=== PATIENT | female | born 2000 | race Caucasian/White ===

== ENCOUNTER → 2024-02-17 | Outpatient (REF) | LOC: M EMP 07:45 | PROVIDERS: ATTEND Family Medicine | DX: Z11.52 Encounter for screening for COVID-19 (principal) ==

== ENCOUNTER → 2024-02-25 | Outpatient (REF) | LOC: M EMP 10:46 | PROVIDERS: ATTEND Family Medicine | DX: Z11.52 Encounter for screening for COVID-19 (principal) ==

== ENCOUNTER → 2024-03-24 | Outpatient (REF) | LOC: M EMP 09:20 | PROVIDERS: ATTEND Family Medicine | DX: Z02.89 Encounter for other administrative examinations (principal) ==

== ENCOUNTER 2024-05-03 05:58 | Emergency (ER) | payer OTHER ==
[~2024-05-03] VITALS: Ht 165.1 cm; Wt 65.9 kg
[2024-05-03] MEDS: METOCLOPRAMIDE INJ 10MG/2ML VIAL IV ONE (09:57)
[2024-05-03 09:58] LABS: BASO # 0.1 10^3/uL (0.0-0.2); BASO % 0.9 % (0.0-1.0); EOS # 0.1 10^3/uL (0.0-0.5); EOS % 1.8 % (0.0-3.0); HEMATOCRIT 40.5 % (36.0-47.0); HEMOGLOBIN 13.3 g/dl (12.0-15.5); LYMPH # 1.4 10^3/uL (1.5-5.0); MEAN CORPUSCULAR HEMOGLOBIN 32.5 pg (27.0-33.0); MEAN CORPUSCULAR HGB CONC 32.8 g/dl (32.0-36.5); MONO # 0.5 10^3/uL (0.0-0.8); MONO % 8.8 % (2.0-8.0); NEUTROPHILS # 3.5 10^3/uL (1.5-8.5); NEUTROPHILS % 63.1 % (36.0-66.0); PLATELET COUNT, AUTOMATED 269 10^3/uL (150-450); RED BLOOD COUNT 4.09 10^6/uL (4.00-5.40); WHITE BLOOD COUNT 5.6 10^3/uL (4.0-10.0)
[2024-05-03] MEDS: ACETAMINOPHEN *IV* 1,000 MG in IV 1 EA IV ONE (09:58)
[2024-05-03 10:24] LABS: ALBUMIN 3.9 G/DL (3.2-5.2); ALKALINE PHOSPHATASE 90 U/L (46-116); ALT/SGPT 10 U/L (7.0-40); AST/SGOT 8 U/L (<34); BILIRUBIN,TOTAL 0.6 MG/DL (0.3-1.2); BLOOD UREA NITROGEN 15 MG/DL (9-23); CALCIUM LEVEL 9.2 MG/DL (8.5-10.1); CARBON DIOXIDE LEVEL 25 MMOL/L (20-31); CHLORIDE LEVEL 113 MMOL/L (98-107); CREATININE FOR GFR 0.82 MG/DL (0.55-1.30); GLOMERULAR FILTRATION RATE > 60.0 (>60); GLUCOSE, FASTING 90 MG/DL (60-100); MAGNESIUM LEVEL 2.3 MG/DL (1.8-2.4); POTASSIUM SERUM 4.3 MMOL/L (3.5-5.1); SODIUM LEVEL 140 MMOL/L (136-145); TOTAL PROTEIN 6.6 G/DL (5.7-8.2)
[2024-05-03 10:25] LABS: HCG, SERUM QUALITATIVE NEGATIVE (NEGATIVE)
[2024-05-03 10:26] LABS: THYROID STIMULATING HORMONE 2.615 uIU/ML (0.55-4.78)
[2024-05-03] MEDS: KETOROLAC 30 MG/ML 1ML VIAL IV ONE (11:19)
[2024-05-03] MEDS: dexAMETHasone 20MG/5ML VIAL IV ONE (11:19)
[2024-05-03 16:01] VITALS: BP 90/52; TEMP 97.2; O2SAT 97
== END 2024-05-03 16:26 | disposition home or self-care (01) ==
LOC: M ED 05:58
DX: R51.9 Headache, unspecified (principal); M54.2 Cervicalgia; H53.8 Other visual disturbances
CPT/HCPCS: 70450; 70544; 70547; 70551; 80053; 83605; 83735; 84443; 84703; 85025; 87040; 96374; 96375; 99284; J0131; J1100; J1885; J2765

== ENCOUNTER 2024-05-10 23:03 | Emergency (ER) | payer OTHER ==
[~2024-05-10] VITALS: Ht 165.1 cm; Wt 67.7 kg
[2024-05-11 01:10] LABS: BASO # 0.1 10^3/uL (0.0-0.2); BASO % 0.7 % (0.0-1.0); EOS # 0.3 10^3/uL (0.0-0.5); EOS % 2.3 % (0.0-3.0); HEMATOCRIT 39.5 % (36.0-47.0); LYMPH # 2.3 10^3/uL (1.5-5.0); LYMPH % 20.3 % (24.0-44.0); MEAN CORPUSCULAR HEMOGLOBIN 32.4 pg (27.0-33.0); MEAN CORPUSCULAR HGB CONC 32.9 g/dl (32.0-36.5); MEAN CORPUSCULAR VOLUME 98.5 fl (80.0-96.0); MONO # 1.3 10^3/uL (0.0-0.8); MONO % 11.7 % (2.0-8.0); NEUTROPHILS # 7.2 10^3/uL (1.5-8.5); NEUTROPHILS % 64.8 % (36.0-66.0); PLATELET COUNT, AUTOMATED 246 10^3/uL (150-450); RED BLOOD COUNT 4.01 10^6/uL (4.00-5.40); WHITE BLOOD COUNT 11.2 10^3/uL (4.0-10.0)
[2024-05-11] MEDS: MAG SULF 1GM/100ML (MAG RUN) 1 GM in IV 1 EA IV ONE (01:22)
[2024-05-11] MEDS: METOCLOPRAMIDE INJ 10MG/2ML VIAL IV ONE (01:22)
[2024-05-11] MEDS: KETOROLAC 30 MG/ML 1ML VIAL IV ONE (01:22)
[2024-05-11 01:35] LABS: ALBUMIN 3.9 G/DL (3.2-5.2); ALKALINE PHOSPHATASE 97 U/L (35-104); ALT/SGPT < 9 U/L (7.0-40); AST/SGOT 12 U/L (<34); BILIRUBIN,DIRECT 0.1 MG/DL (<0.4); BILIRUBIN,TOTAL 0.4 MG/DL (0.3-1.2); BLOOD UREA NITROGEN 16 MG/DL (9-23); CALCIUM LEVEL 9.8 MG/DL (8.5-10.1); CARBON DIOXIDE LEVEL 26 MMOL/L (20-31); CHLORIDE LEVEL 111 MMOL/L (98-107); CK-MB VALUE MASS < 1.0 NG/ML (<3.6); CREATININE FOR GFR 0.79 MG/DL (0.55-1.30); GLOMERULAR FILTRATION RATE > 60.0 (>60); GLUCOSE, FASTING 73 MG/DL (60-100); POTASSIUM SERUM 3.7 MMOL/L (3.5-5.1); SODIUM LEVEL 143 MMOL/L (136-145); TOTAL PROTEIN 6.4 G/DL (5.7-8.2)
[2024-05-11 01:38] LABS: THYROID STIMULATING HORMONE 3.684 uIU/ML (0.55-4.78)
[2024-05-11 01:39] LABS: CPK CREATINE PHOSPHOKINASE 49 U/L (34-145); MB/CK RELATIVE INDEX 2.04 (< OR =4)
[2024-05-11] MEDS: FIORICET TAB PO ONE ×2 (03:34)
[2024-05-11 04:53] VITALS: BP 124/60; TEMP 97.8; O2SAT 97
[2024-05-11] MEDS ORDERED: FIOR1CAP PO (05:12)
== END 2024-05-11 05:43 | disposition home or self-care (01) ==
LOC: M ED 23:03
DX: G43.909 Migraine, unspecified, not intractable, without status migrainosus (principal); J45.909 Unspecified asthma, uncomplicated; J44.9 Chronic obstructive pulmonary disease, unspecified; Z88.0 Allergy status to penicillin; Z88.5 Allergy status to narcotic agent
CPT/HCPCS: 80048; 80076; 82550; 82553; 84443; 84484; 85025; 93005; 96374; 96375; 99284; J1100; J1885; J2765; J3475

== ENCOUNTER 2024-05-24 06:44 | Emergency (ER) | payer OTHER ==
[~2024-05-24] VITALS: Ht 165.1 cm; Wt 67.3 kg
[~2024-05-24 06:44] MED LIST: FIOR1CAP PO
[2024-05-24] MEDS: MORPHINE 2 MG/ML 1ML VIAL IV ONE (07:18)
[2024-05-24] MEDS: ONDANSETRON 4MG 2ML VIAL IV ONE (07:19)
[2024-05-24 07:32] LABS: BASO # 0.1 10^3/uL (0.0-0.2); BASO % 0.8 % (0.0-1.0); EOS # 0.2 10^3/uL (0.0-0.5); EOS % 2.5 % (0.0-3.0); HEMATOCRIT 39.2 % (36.0-47.0); HEMOGLOBIN 12.6 g/dl (12.0-15.5); LYMPH # 1.9 10^3/uL (1.5-5.0); LYMPH % 20.6 % (24.0-44.0); MEAN CORPUSCULAR HEMOGLOBIN 31.8 pg (27.0-33.0); MEAN CORPUSCULAR HGB CONC 32.1 g/dl (32.0-36.5); MONO # 1.1 10^3/uL (0.0-0.8); MONO % 12.2 % (2.0-8.0); NEUTROPHILS # 5.7 10^3/uL (1.5-8.5); NEUTROPHILS % 63.6 % (36.0-66.0); PLATELET COUNT, AUTOMATED 270 10^3/uL (150-450); RED BLOOD COUNT 3.96 10^6/uL (4.00-5.40)
[2024-05-24 07:48] LABS: HCG, SERUM QUANTITATIVE < 2.6 MIU/ML (<4.2)
[2024-05-24 08:09] LABS: BLOOD UREA NITROGEN 16 MG/DL (9-23); CALCIUM LEVEL 9.2 MG/DL (8.5-10.1); CARBON DIOXIDE LEVEL 26 MMOL/L (20-31); CHLORIDE LEVEL 112 MMOL/L (98-107); CREATININE FOR GFR 0.81 MG/DL (0.55-1.30); GLOMERULAR FILTRATION RATE > 60.0 (>60); GLUCOSE, FASTING 76 MG/DL (60-100); POTASSIUM SERUM 3.8 MMOL/L (3.5-5.1); SODIUM LEVEL 144 MMOL/L (136-145)
[2024-05-24] MEDS: KETOROLAC 30 MG/ML 1ML VIAL IV ONE (08:14)
[2024-05-24] MEDS: MORPHINE 4 MG/ML 1ML VIAL IV ONE (09:57)
[2024-05-24] MEDS ORDERED: ISOVUE-370 76% 100ML VIAL As Ordered ONE (11:44)
[2024-05-24 12:08] LABS: GC DNA AMPLIFICATION NEGATIVE (NEGATIVE)
[2024-05-24] MEDS ORDERED: IBUP80TA PO (13:40)
[2024-05-24 13:42] VITALS: BP 101/66; TEMP 97.7; O2SAT 99
== END 2024-05-24 13:51 | disposition home or self-care (01) ==
LOC: M ED 06:44
DX: R10.2 Pelvic and perineal pain (principal); N92.0 Excessive and frequent menstruation with regular cycle
CPT/HCPCS: 74177; 76830; 76856; 80048; 84702; 85025; 86850; 86900; 86901; 87210; 87810; 87850; 93976; 96374; 96375; 96376; 99284; J1885; J2405; Q9967

== ENCOUNTER → 2024-07-22 | Outpatient (REF) ==
[~2024-07-22] MED LIST changes: +IBUP80TA PO
== END ==
LOC: M EMP 13:22
PROVIDERS: ATTEND Family Medicine
DX: Z11.52 Encounter for screening for COVID-19 (principal); Z20.822 Contact with and (suspected) exposure to COVID-19

== ENCOUNTER → 2024-08-17 | Outpatient (REF) | payer OTHER | LOC: M LAB REF 20:33 | PROVIDERS: ATTEND Physician Assistant Medical | DX: R50.9 Fever, unspecified (principal) ==

== ENCOUNTER 2024-10-01 02:08 | Emergency (ER) | payer OTHER ==
[~2024-10-01] VITALS: Ht 165.1 cm; Wt 71.3 kg
[2024-10-01 02:11] VITALS: TEMP 97.3
[2024-10-01] MEDS ORDERED: BUSP10TA (02:26)
[2024-10-01] MEDS ORDERED: GABA-1635 (02:26)
[2024-10-01] MEDS ORDERED: CITA20TA7 (02:26)
[2024-10-01] MEDS ORDERED: CITA10TA7 (02:26)
[2024-10-01 05:23] LABS: BASO % 0.5 % (0.0-1.0); EOS # 0.2 10^3/uL (0.0-0.5); EOS % 2.7 % (0.0-3.0); HEMATOCRIT 41.1 % (36.0-47.0); HEMOGLOBIN 13.9 g/dl (12.0-15.5); LYMPH # 2.1 10^3/uL (1.5-5.0); LYMPH % 25.1 % (24.0-44.0); MEAN CORPUSCULAR HEMOGLOBIN 32.5 pg (27.0-33.0); MEAN CORPUSCULAR HGB CONC 33.8 g/dl (32.0-36.5); MONO # 0.7 10^3/uL (0.0-0.8); MONO % 8.6 % (2.0-8.0); NEUTROPHILS # 5.2 10^3/uL (1.5-8.5); NEUTROPHILS % 62.9 % (36.0-66.0); PLATELET COUNT, AUTOMATED 289 10^3/uL (150-450); RED BLOOD COUNT 4.28 10^6/uL (4.00-5.40); WHITE BLOOD COUNT 8.3 10^3/uL (4.0-10.0)
[2024-10-01 05:59] LABS: ALBUMIN 4.3 G/DL (3.2-5.2); ALKALINE PHOSPHATASE 77 U/L (35-104); ALT/SGPT 14 U/L (7.0-40); AST/SGOT 44 U/L (<34); BILIRUBIN,DIRECT 0.1 MG/DL (<0.4); BILIRUBIN,TOTAL 0.5 MG/DL (0.3-1.2); BLOOD UREA NITROGEN 8 MG/DL (9-23); CALCIUM LEVEL 9.1 MG/DL (8.5-10.1); CARBON DIOXIDE LEVEL 25 MMOL/L (20-31); CHLORIDE LEVEL 104 MMOL/L (98-107); CPK CREATINE PHOSPHOKINASE 148 U/L (34-145); CREATININE FOR GFR 0.64 MG/DL (0.55-1.30); GLOMERULAR FILTRATION RATE > 60.0 (>60); GLUCOSE, FASTING 90 MG/DL (60-100); LIPASE 38 U/L (12-53); MB/CK RELATIVE INDEX 0.67 (< OR =4); POTASSIUM SERUM 5.4 MMOL/L (3.5-5.1); SODIUM LEVEL 141 MMOL/L (136-145); TOTAL PROTEIN 7.5 G/DL (5.7-8.2)
[2024-10-01 06:07] LABS: HCG, SERUM QUALITATIVE NEGATIVE (NEGATIVE)
[2024-10-01 07:00] VITALS: BP 103/64; O2SAT 98
== END 2024-10-01 07:08 | disposition home or self-care (01) ==
LOC: M ED 02:08
DX: R07.9 Chest pain, unspecified (principal); J45.909 Unspecified asthma, uncomplicated; F41.9 Anxiety disorder, unspecified; F32.A Depression, unspecified; Z86.79 Personal history of other diseases of the circulatory system; Z88.0 Allergy status to penicillin; Z88.1 Allergy status to other antibiotic agents; Z88.5 Allergy status to narcotic agent

== ENCOUNTER 2025-01-31 20:06 | Emergency (ER) | payer OTHER ==
[~2025-01-31] VITALS: Ht 165.1 cm; Wt 78.4 kg
[~2025-01-31 20:06] MED LIST changes: +BUSP10TA; +CITA10TA7; +CITA20TA7; +GABA-1635; +ONDA-282 PO
[2025-01-31 20:13] VITALS: BP 127/76; TEMP 97.1; O2SAT 96
== END 2025-01-31 21:44 | disposition left against medical advice (07) ==
LOC: M ED 20:06
DX: Z53.21 Procedure and treatment not carried out due to patient leaving prior to being seen by health care provider (principal)

== ENCOUNTER 2025-04-11 21:54 | Emergency (ER) | payer OTHER ==
[~2025-04-11] VITALS: Ht 165.1 cm; Wt 83.8 kg
[2025-04-11 23:21] LABS: BASO # 0.0 10^3/uL (0.0-0.2); BASO % 0.3 % (0.0-1.0); EOS # 0.2 10^3/uL (0.0-0.5); EOS % 1.8 % (0.0-3.0); LYMPH # 1.8 10^3/uL (1.5-5.0); LYMPH % 15.8 % (24.0-44.0); MONO # 1.1 10^3/uL (0.0-0.8); MONO % 9.4 % (2.0-8.0); NEUTROPHILS # 8.4 10^3/uL (1.5-8.5); NEUTROPHILS % 72.1 % (36.0-66.0); PLATELET COUNT, AUTOMATED 273 10^3/uL (150-450)
[2025-04-11 23:42] LABS: CK-MB VALUE MASS < 1.0 NG/ML (<3.6)
[2025-04-11 23:44] LABS: CALCIUM LEVEL 8.2 MG/DL (8.5-10.1); CARBON DIOXIDE LEVEL 23 MMOL/L (20-31); CHLORIDE LEVEL 108 MMOL/L (98-107); CPK CREATINE PHOSPHOKINASE < 15 U/L (34-145); CREATININE FOR GFR 0.51 MG/DL (0.55-1.30); GLOMERULAR FILTRATION RATE > 90.0 (>60); POTASSIUM SERUM 3.5 MMOL/L (3.5-5.1); SODIUM LEVEL 140 MMOL/L (136-145)
[2025-04-12 03:01] VITALS: BP 126/63; TEMP 98.9; O2SAT 97
[2025-04-12] MEDS ORDERED: BENZ200C70 PO (03:01)
[2025-04-12] MEDS ORDERED: PRED20TA PO (03:01)
[2025-04-12] MEDS: predniSONE 20 MG TAB PO ONE (03:08)
[2025-04-12] MEDS: BENZONATATE 100 MG CAPSULE PO ONE (03:08)
== END 2025-04-12 03:11 | disposition home or self-care (01) ==
LOC: M ED 21:54
DX: O99.512 Diseases of the respiratory system complicating pregnancy, second trimester (principal); O99.282 Endocrine, nutritional and metabolic diseases complicating pregnancy, second trimester; O99.342 Other mental disorders complicating pregnancy, second trimester; Z3A.23 23 weeks gestation of pregnancy; Z79.899 Other long term (current) drug therapy; Z88.0 Allergy status to penicillin; Z88.1 Allergy status to other antibiotic agents; Z88.5 Allergy status to narcotic agent
CPT/HCPCS: 80048; 82550; 82553; 84484; 85025; 87486; 87581; 87633; 87798; 93005; 93041; 99284; J7512

== ENCOUNTER 2025-04-18 01:29 | Emergency (ER) | payer OTHER ==
[~2025-04-18] VITALS: Ht 165.1 cm; Wt 81.1 kg
[~2025-04-18 01:29] MED LIST changes: +BENZ200C70 PO; +PRED20TA PO
[2025-04-18 02:02] LABS: BASO # 0.0 10^3/uL (0.0-0.2); BASO % 0.2 % (0.0-1.0); EOS # 0.1 10^3/uL (0.0-0.5); EOS % 0.9 % (0.0-3.0); LYMPH # 1.0 10^3/uL (1.5-5.0); LYMPH % 6.9 % (24.0-44.0); MONO # 1.0 10^3/uL (0.0-0.8); MONO % 6.9 % (2.0-8.0); NEUTROPHILS # 12.6 10^3/uL (1.5-8.5); NEUTROPHILS % 83.9 % (36.0-66.0); PLATELET COUNT, AUTOMATED 268 10^3/uL (150-450)
[2025-04-18 02:26] LABS: KETONE, URINE AUTO RFX NEGATIVE (NEGATIVE); LEUKOCYTE ESTERASE UR AUTO RFX NEGATIVE (NEGATIVE); MUCUS, URINE RFX SMALL (NEGATIVE); NITRITE, URINE AUTO RFX NEGATIVE (NEGATIVE); RBC, URINE AUTO RFX 1 /HPF (0-3); SQUAM EPITHELIAL CELL UR AURFX 5 /HPF (0-6); WBC, URINE AUTO RFX 2 /HPF (0-3)
[2025-04-18 02:39] LABS: ALT/SGPT 61 U/L (7.0-40); AST/SGOT 33 U/L (<34); C REACTIVE PROTEIN QUANTITATIV 0.79 MG/DL (<1.0); CALCIUM LEVEL 8.5 MG/DL (8.5-10.1); CARBON DIOXIDE LEVEL 23 MMOL/L (20-31); CHLORIDE LEVEL 108 MMOL/L (98-107); CREATININE FOR GFR 0.45 MG/DL (0.55-1.30); GLOMERULAR FILTRATION RATE > 90.0 (>60); POTASSIUM SERUM 3.7 MMOL/L (3.5-5.1); SODIUM LEVEL 141 MMOL/L (136-145)
[2025-04-18] MEDS: ACETAMINOPHEN *IV* 1,000 MG in IV 1 EA IV ONE (04:36)
[2025-04-18 06:00] VITALS: BP 100/55; TEMP 98; O2SAT 97
== END 2025-04-18 06:14 | disposition home or self-care (01) ==
LOC: M ED 01:29
DX: O99.52 Diseases of the respiratory system complicating childbirth (principal); R09.1 Pleurisy; O99.342 Other mental disorders complicating pregnancy, second trimester; F41.9 Anxiety disorder, unspecified; Z3A.24 24 weeks gestation of pregnancy; Z79.899 Other long term (current) drug therapy; Z88.0 Allergy status to penicillin; Z88.1 Allergy status to other antibiotic agents; Z88.5 Allergy status to narcotic agent
CPT/HCPCS: 71046; 80053; 81001; 84484; 85025; 86140; 93005; 93970; 96365; 96366; 99285; J0131

== ENCOUNTER 2025-06-09 14:57 | Outpatient (CLI) | payer OTHER ==
[~2025-06-09] VITALS: Ht 165.1 cm; Wt 91.8 kg
[2025-06-09] MEDS ORDERED: PRENTAB9 PO (15:13)
[2025-06-09] MEDS ORDERED: SERT-141 PO (15:13)
[2025-06-09] MEDS ORDERED: FAMO1TAB11 (15:13)
[2025-06-09 15:15] VITALS: BP 132/67
[2025-06-09] MEDS ORDERED: ACET-907 PO (15:20)
[2025-06-09] MEDS ORDERED: HOME MED LIST COMPLETE! XX SCH (15:25)
[2025-06-09] MEDS ORDERED: FERR325T3 PO (16:40)
== END 2025-06-09 17:11 | disposition home or self-care (01) ==
LOC: M LDO 14:57
PROVIDERS: ATTEND Advanced Practice Midwife
DX: O26.893 Other specified pregnancy related conditions, third trimester (principal); O99.353 Diseases of the nervous system complicating pregnancy, third trimester; O99.343 Other mental disorders complicating pregnancy, third trimester; N89.8 Other specified noninflammatory disorders of vagina; G43.009 Migraine without aura, not intractable, without status migrainosus; F41.8 Other specified anxiety disorders; Z3A.31 31 weeks gestation of pregnancy
CPT/HCPCS: 59025; G0463

== ENCOUNTER → 2025-06-14 | Outpatient (REF) | payer OTHER ==
[~2025-06-14] MED LIST changes: +ACET-907 PO; +FAMO1TAB11; +FERR325T3 PO; +PRENTAB9 PO; +SERT-141 PO
== END ==
LOC: M LAB REF 21:03
PROVIDERS: ATTEND Physician Assistant Medical
DX: B34.9 Viral infection, unspecified (principal)